=== PATIENT | male | born 1970 | race Caucasian/White ===

== ENCOUNTER → 2018-06-27 | Outpatient (CLI) | payer MEDICARE, OTHER ==
[~2018-06-27] MED LIST: AZEL137S4 NAS; BUTA1CAP5 PO; CALC-534 PO; CARV-39 PO; CHOL10003 PO; DEXT15DR16 EACHEYE; FLUT9.9S NS; LACT1CAP35 PO; LISI-170 PO; LOPE2TAB28 PO; MONT10TA6 PO; MULT-658 PO; OXYC5CAP2 PO; SUMA50TA4 PO; TIZA4CAP PO; TOPI150C4 PO; ZOLP12.52 PO
[2018-06-27 11:37] LABS: CHLORIDE 113 mmol/L (98-107)
[2018-06-27 11:44] LABS: ALANINE AMINOTRANSFERASE 29 U/L (12-78); ALKALINE PHOSPHATASE 92 U/L (45-117); ANION GAP 7 mmol/L (5-15); BILIRUBIN,TOTAL 0.2 mg/dL (0.2-1.0); CALCIUM 8.3 mg/dL (8.5-10.1); CREATININE 1.09 mg/dL (0.7-1.3); TOTAL PROTEIN 7.9 g/dL (6.4-8.2)
== END | disposition home or self-care (01) ==
LOC: STAR 10:01
PROVIDERS: ATTEND Otolaryngology
DX: Z01.818 Encounter for other preprocedural examination (principal); J32.0 Chronic maxillary sinusitis; Z88.6 Allergy status to analgesic agent; Z88.0 Allergy status to penicillin
CPT/HCPCS: 36415; 80053

== ENCOUNTER → 2018-07-02 | Outpatient (CLI) | payer MEDICARE, OTHER | END | disposition home or self-care (01) | LOC: RAD 13:26 | PROVIDERS: ATTEND Otolaryngology | DX: J32.2 Chronic ethmoidal sinusitis (principal); Z98.890 Other specified postprocedural states | CPT/HCPCS: 70486 ==

== ENCOUNTER 2018-08-27 05:44 | Observation (INO) | payer MEDICARE, OTHER ==
[~2018-08-27] VITALS: Ht 170.2 cm; Wt 89.3 kg
[2018-08-27] MEDS ORDERED: LACTATED RINGERS 1,000 ML IV SCH (06:31)
[2018-08-27] MEDS ORDERED: LIDOCAINE 1%, 20ML ONE ×2 (06:57→15:47)
[2018-08-27] MEDS ORDERED: OXYMETAZOLINE NASAL SPRAY 0.05%, 15ML ONE ×2 (06:57→15:47)
[2018-08-27] MEDS ORDERED: EPINEPHRINE 1 MG/ML, 1ML ONE ×2 (06:57→15:47)
[2018-08-27] MEDS ORDERED: FLUORESCEIN SODIUM 500 MG/5 ML ONE ×2 (06:57→15:47)
[2018-08-27] MEDS ORDERED: EPINEPHRINE TOPICAL SOLN 1 MG/ML, 30ML ONE ×2 (06:57→15:47)
[2018-08-27] MEDS ORDERED: BACITRACIN OINT 500U/GM, 15 GM ONE ×3 (06:57→15:47)
[2018-08-27] MEDS ORDERED: PROMETHAZINE 25 MG/ML, 1ML IV PRN ×2 (07:30→17:00)
[2018-08-27] MEDS ORDERED: HYDROmorphone 2 MG/ML, 1ML IVPush PRN ×2 (07:30→17:00)
[2018-08-27] MEDS ORDERED: hydrALAzine 20 MG/ML, 1ML IV PRN ×2 (07:30→17:00)
[2018-08-27] MEDS ORDERED: LABETALOL 5MG/ML, 20ML IV PRN (07:30)
[2018-08-27] MEDS ORDERED: FENTANYL PF 100 MCG/2ML IV PRN ×2 (07:30→17:00)
[2018-08-27] MEDS ORDERED: PROCHLORPERAZINE 5 MG/ML, 2ML IV PRN (07:30)
[2018-08-27] MEDS ORDERED: GABAPENTIN 300 MG CAPSULE PO ONE (07:30)
[2018-08-27] MEDS ORDERED: OXYcodone 5 MG/5 ML ORAL.SOL UDC PO PRN ×2 (07:30→17:00)
[2018-08-27] MEDS ORDERED: DIPHENHYDRAMINE 50 MG/ML, 1ML IVPush PRN (07:30)
[2018-08-27] MEDS ORDERED: HALOPERIDOL 5 MG/ML IV PRN (07:30)
[2018-08-27] MEDS ORDERED: MEPERIDINE/PF 25MG/0.5ML IVPush PRN ×2 (07:30→17:00)
[2018-08-27] MEDS ORDERED: METOPROLOL 1 MG/ML, 5ML IV PRN ×2 (07:30→17:00)
[2018-08-27] MEDS ORDERED: MIDAZOLAM 1 MG/ML, 2ML ONE ×2 (07:32→15:47)
[2018-08-27] MEDS ORDERED: NEOSTIGMINE 1 MG/ML, 10ML ONE (08:43)
[2018-08-27] MEDS ORDERED: ONDANSETRON 2MG/ML, 2ML ONE ×2 (08:43→17:46)
[2018-08-27] MEDS ORDERED: GLYCOPYRROLATE 0.2MG/1ML, 5ML ONE (08:43)
[2018-08-27] MEDS ORDERED: PROPOFOL 10 MG/ML, 20ML ONE ×2 (08:43→17:46)
[2018-08-27] MEDS ORDERED: FENTANYL PF 250 MCG/5ML ONE ×2 (08:43→15:47)
[2018-08-27] MEDS ORDERED: CEFAZOLIN 1,000 MG ONE ×2 (08:43→17:46)
[2018-08-27] MEDS ORDERED: SUCCINYLCHOLINE 20 MG/ML, 10ML ONE (08:43)
[2018-08-27] MEDS ORDERED: DEXAMETHASONE 4 MG/ML, 1ML ONE ×2 (08:43→17:46)
[2018-08-27] MEDS ORDERED: ROCURONIUM 10MG/ML,5ML ONE (08:43)
[2018-08-27] MEDS ORDERED: OXYMETAZOLINE NASAL SPRAY 0.05%, 15ML NAS PRN (11:15)
[2018-08-27] MEDS ORDERED: morphine SULFATE 10 MG/ML, 1ML ONE (13:59)
[2018-08-27 15:00] VITALS: BP 116/78
[2018-08-27] MEDS ORDERED: ONDANSETRON 2MG/ML, 2ML IV PRN ×2 (15:30→17:00)
[2018-08-27] MEDS ORDERED: BACITRACIN 50,000 UNIT ONE (15:47)
[2018-08-27] MEDS ORDERED: MIDAZOLAM 1 MG/ML, 2ML IV PRN (17:00)
[2018-08-27] MEDS ORDERED: ALBUTEROL/IPRATROPIUM 2.5MG/0.5MG, 3 ML NPPB PRN (17:00)
[2018-08-27 17:09] LABS: BASOPHILS # (AUTO) 0.01 x10^3/uL (0-0.1); BASOPHILS % (AUTO) 0 % (0-1); EOSINOPHILS % (AUTO) 0 % (1-7); LYMPHOCYTES # (AUTO) 1.06 x10^3/uL (1-3.4); LYMPHOCYTES % (AUTO) 23 % (22-44); MD NO; MEAN CORPUSCULAR HEMOGLOBIN 29.1 pg (27.5-34.5); MEAN CORPUSCULAR HGB CONC 33.6 g/dL (33.2-36.2); MEAN CORPUSCULAR VOLUME 86.5 fL (81-97); MEAN PLATELET VOLUME 7.9 fL (7.4-10.4); MONOCYTES # (AUTO) 0.21 x10^3/uL (0.2-0.8); MONOCYTES % (AUTO) 5 % (2-9); NEUTROPHILS # (AUTO) 3.37 x10^3/uL (1.8-6.8); NEUTROPHILS % (AUTO) 72 % (42-75); PLATELET COUNT 171 x10^3/uL (130-400); RED BLOOD COUNT 4.59 x10^6/uL (4.38-5.82); RED CELL DISTRIBUTION WIDTH 13.5 % (9.4-14.8)
[2018-08-27 17:16] LABS: INTERNATIONAL NORMALIZED RATIO 1.12 (0.93-1.1); PROTHROMBIN TIME 11.7 Seconds (9.6-11.5)
[2018-08-27] MEDS: THROMBIN 5,000 UNIT VIAL TP ONE ×2 (17:17→17:21)
[2018-08-27] MEDS ORDERED: METOCLOPRAMIDE 5 MG/ML, 2ML ONE (17:46)
[2018-08-27] MEDS ORDERED: MEPERIDINE/PF 25MG/ML,1ML ONE (18:07)
[2018-08-27] MEDS ORDERED: HYDROmorphone 2 MG/ML, 1ML ONE (18:22)
[2018-08-27 19:00] VITALS: BP 122/79
[2018-08-27] MEDS ORDERED: SUMATRIPTAN 50 MG TABLET PO PRN (20:00)
[2018-08-27] MEDS ORDERED: TIZANIDINE 4MG TABLET PO PRN (20:00)
[2018-08-27] MEDS: OXYcodone IR 5MG TABLET PO PRN (20:31)
[2018-08-27] MEDS: LACTOBACILLUS CHEW TABLET PO SCH (20:31)
[2018-08-27] MEDS: LOPERAMIDE 2 MG CAPSULE PO SCH (20:31)
[2018-08-27] MEDS: AMPICILLIN/SULBACTAM 3 GM in SODIUM CHLORIDE 0.9% 100 ML IV SCH (20:32)
[2018-08-27] MEDS: [UNRECOGNIZED DRUG - OTHER] OP SCH (21:00)
[2018-08-27] MEDS: HYPROMELLOSE OP SCH (21:00)
[2018-08-27] MEDS: LACTATED RINGERS 1,000 ML IV SCH (23:00)
[2018-08-28] MEDS: OXYcodone IR 5MG TABLET PO PRN ×3 (00:14→08:59)
[2018-08-28 00:19] VITALS: BP 108/66
[2018-08-28] MEDS: AMPICILLIN/SULBACTAM 3 GM in SODIUM CHLORIDE 0.9% 100 ML IV SCH ×2 (03:30→08:58)
[2018-08-28 03:57] VITALS: BP 108/64
[2018-08-28] MEDS: LACTATED RINGERS 1,000 ML IV SCH (04:25)
[2018-08-28 05:31] VITALS: BP 104/71
[2018-08-28] MEDS: [UNRECOGNIZED DRUG - OTHER] OP SCH (06:00)
[2018-08-28] MEDS ORDERED: CARVEDILOL 25 MG TABLET PO SCH (06:00)
[2018-08-28] MEDS: HYPROMELLOSE OP SCH (06:00)
[2018-08-28] MEDS: LOPERAMIDE 2 MG CAPSULE PO SCH (06:37)
[2018-08-28 06:47] VITALS: BP 129/82
[2018-08-28] MEDS: LACTOBACILLUS CHEW TABLET PO SCH (08:59)
[2018-08-28] MEDS ORDERED: LISINOPRIL 20 MG TABLET PO SCH (09:00)
[2018-08-28] MEDS ORDERED: TOPIRAMATE 25 MG TABLET PO SCH (09:00)
[2018-08-28] MEDS ORDERED: MONTELUKAST 10 MG TABLET PO SCH (09:00)
[2018-08-28] MEDS ORDERED: AMOX1TAB64 PO (09:18)
[2018-08-28] MEDS ORDERED: OXYC5TAB3 PO (09:19)
== END 2018-08-28 09:25 | disposition home or self-care (01) ==
LOC: OR 05:44 → 4NOR 14:58 → OR 19:14 → 4NOR 19:15 → DCLOUNGE 08-28 09:17
PROVIDERS: ADMIT Otolaryngology; ATTEND Otolaryngology
DX: J32.9 Chronic sinusitis, unspecified (principal); R04.0 Epistaxis
CPT/HCPCS: 31238; 31255; 36415; 85025; 85610; 85730; 86850; 86900; 88304; 88311; 96365; 96366; 96375; G0378; J0171; J0295; J0330; J0690; J1100; J1170; J2175; J2250; J2405; J2550; J2704; J2710; J2765; J3010; J3490; J7120